=== PATIENT | male | born 1955 | race Caucasian/White ===

== ENCOUNTER 2023-09-18 06:11 | Observation (INO) | payer OTHER ==
[2023-09-15 09:44] LABS: BASOPHILS # (AUTO) 0.03 K/uL (0.00-0.20); BASOPHILS % (AUTO) 0.4 % (0.0-5.0); EOSINOPHILS # (AUTO) 0.11 K/uL (0.00-0.70); EOSINOPHILS % (AUTO) 1.6 % (0.0-8.0); HEMATOCRIT 42.4 % (42-54); IMMATURE GRANULOCYTE ABSOLUTE 0.02 K/uL (0-1); LYMPHOCYTES # (AUTO) 1.7 K/uL (1.0-4.8); LYMPHOCYTES % (AUTO) 25.3 % (21.0-51.0); MEAN CORPUSCULAR HEMOGLOBIN 28.9 pg (27.0-33.0); MEAN CORPUSCULAR HGB CONC 33.7 g/dL (32.0-36.0); MEAN CORPUSCULAR VOLUME 85.8 fL (79-99); MONOCYTES # (AUTO) 0.5 K/uL (0.1-1.0); MONOCYTES % (AUTO) 6.7 % (3.0-13.0); NEUTROPHILS # (AUTO) 4.5 K/uL (1.8-7.7); NEUTROPHILS % (AUTO) 65.7 % (40.0-77.0); PLATELET COUNT (AUTO) 247 K/uL (130-400); RED BLOOD CELL COUNT(AUTO) 4.94 MIL/uL (4.50-6.20); WHITE BLOOD COUNT (AUTO) 6.8 K/uL (4.8-10.8)
[2023-09-15 09:53] LABS: ALBUMIN 3.5 g/dL (3.5-5.0); CREATININE 0.8 mg/dL (0.5-1.3); POTASSIUM 3.9 mmol/L (3.5-5.1)
[2023-09-15 09:54] LABS: INR 1.02 (0.85-1.15)
[2023-09-15 09:56] LABS: PARTIAL THROMBOPLASTIN TIME 27.8 SEC (26.3-35.5)
[2023-09-15 10:21] VITALS: BP 144/83; PULSE 79; RESP 18
[2023-09-18] VITALS (29 sets, daily range): BP systolic 119–163; BP diastolic 52–86; PULSE 40–74; RESP 15–20
[~2023-09-18] VITALS: Ht 193 cm; Wt 143.3 kg
[~2023-09-18 06:11] MED LIST: ATOR20TA65 PO; HYDR25TA PO; LOSA25TA41 PO
[2023-09-18] MEDS: CEFAZOLIN SODIUM 2 GM VIAL ONE (06:56)
[2023-09-18] MEDS: CEFAZOLIN SODIUM 1 GM VIAL ONE (06:56)
[2023-09-18] MEDS: LACTATED RINGERS 1000ML 1,000 ML IV ONE (06:57)
[2023-09-18] MEDS ORDERED: TRANEXAMIC ACID 1000MG/10ML ONE (07:41)
[2023-09-18] MEDS ORDERED: PROPOFOL 10 MG/ML 20ML VIAL IV ONE (07:57)
[2023-09-18] MEDS ORDERED: MIDAZOLAM HCL 1 MG/ML 2ML VIAL ONE (07:57)
[2023-09-18] MEDS ORDERED: LIDOCAINE PF 100MG/5ML (2%) SYRINGE 5ML ONE (07:57)
[2023-09-18] MEDS ORDERED: ROCURONIUM BROMIDE 10MG/1ML 5ML VL ONE ×2 (07:57→09:11)
[2023-09-18] MEDS ORDERED: FENTANYL CITRATE PF 50 MCG/1 ML 2ML VIAL ONE ×2 (07:58→09:16)
[2023-09-18] MEDS ORDERED: ROPIVACAINE 0.5% 5MG/ML 30ML ONE (08:01)
[2023-09-18] MEDS ORDERED: DEXAMETHASONE SOD PHOSPHATE 10MG/ML 1ML VIAL ONE ×2 (08:05→09:11)
[2023-09-18] MEDS: CEFAZOLIN SODIUM 3 GM VIAL IVPB ONE (09:00)
[2023-09-18] MEDS ORDERED: ONDANSETRON 4MG INJ ONE (09:11)
[2023-09-18] MEDS ORDERED: KETOROLAC 30MG VIAL (30MG/ML) ONE (09:15)
[2023-09-18] MEDS ORDERED: GLYCOPYRROLATE 0.2 MG/ML 5 ML VIAL ONE (09:23)
[2023-09-18] MEDS ORDERED: NEOSTIGMINE METHYLSULFATE 1MG/ML IV ONE (09:23)
[2023-09-18] MEDS: TRANEXAMIC ACID 1000MG/10ML IV ONE (10:39)
[2023-09-18] MEDS: 0.9%NACL 1000ML 1,000 ML IV SCH (11:30)
[2023-09-18] MEDS ORDERED: ONDANSETRON 4MG INJ IVP PRN (11:30)
[2023-09-18] MEDS ORDERED: CALCIUM CARB 500MG PO PRN (11:30)
[2023-09-18] MEDS ORDERED: CYCLOBENZAPRINE HCL 10 MG TABLET PO PRN (11:30)
[2023-09-18] MEDS ORDERED: FERROUS FUMARATE 324 MG TABLET PO PRN (11:30)
[2023-09-18] MEDS: KETOROLAC 15MG/ML VIAL (15MG/ML) IV SCH (11:30)
[2023-09-18] MEDS ORDERED: DiphenhydrAMINE HCL 50 MG/ML VIAL IVP PRN (11:30)
[2023-09-18] MEDS: MEPERIDINE-PF 25 MG/ML SYG ONE (12:25)
[2023-09-18] MEDS: KETOROLAC 15MG/ML VIAL (15MG/ML) ONE (12:38)
[2023-09-18] MEDS: GABAPENTIN 100 MG CAPSULE PO SCH (14:00)
[2023-09-18] MEDS: HYDROCODONE/ACETAMINOPHEN 5/325 MG TAB PO PRN (15:05)
[2023-09-18] MEDS: CEFAZOLIN SODIUM 2 GM VIAL IVPB SCH (16:42)
[2023-09-18] MEDS: ATORVASTATIN 20 MG TABLET PO SCH (22:16)
[2023-09-18] MEDS: DOCUSATE SODIUM 100 MG CAP PO SCH (22:16)
[2023-09-19] VITALS (8 sets, daily range): BP systolic 112–136; BP diastolic 50–66; PULSE 59–92; RESP 18–20; O2SAT 96
[2023-09-19 05:00] LABS: HEMATOCRIT 36.7 % (42-54); MEAN CORPUSCULAR HEMOGLOBIN 29.6 pg (27.0-33.0); MEAN CORPUSCULAR HGB CONC 33.5 g/dL (32.0-36.0); MEAN CORPUSCULAR VOLUME 88.4 fL (79-99); RED BLOOD CELL COUNT(AUTO) 4.15 MIL/uL (4.50-6.20); RED CELL DISTRIBUTION WIDTH 12.8 % (11.0-15.5); WHITE BLOOD COUNT (AUTO) 14.9 K/uL (4.8-10.8)
[2023-09-19 05:19] LABS: CREATININE 0.9 mg/dL (0.5-1.3); POTASSIUM 4.2 mmol/L (3.5-5.1)
[2023-09-19] MEDS: LOSARTAN 25 MG TABLET PO SCH (08:45)
[2023-09-19] MEDS: POLYETHYLENE GLYCOL 3350 17 GM POWD.PACK PO SCH (08:45)
[2023-09-19] MEDS: HYDROCHLOROTHIAZIDE 25 MG TABLET PO SCH (08:46)
[2023-09-19] MEDS: HYDROCODONE/ACETAMINOPHEN 5/325 MG TAB PO PRN (08:54)
[2023-09-19] MEDS: KETOROLAC 15MG/ML VIAL (15MG/ML) IV PRN (21:01)
[2023-09-20 04:12] VITALS: BP 127/64; PULSE 58; RESP 18
[2023-09-20 07:44] VITALS: O2SAT 96
[2023-09-20 09:21] VITALS: BP 114/49; PULSE 47; RESP 18
[2023-09-20 11:22] VITALS: BP 132/53; PULSE 51; RESP 18
[2023-09-20 16:21] VITALS: BP 126/53; PULSE 51; RESP 18
[2023-09-20] MEDS: ASPIRIN 325MG TAB PO SCH (18:05)
[2023-09-20 20:00] VITALS: BP 142/52; PULSE 53; RESP 22
[2023-09-21] VITALS: BP 148/67; PULSE 55; RESP 20
[2023-09-21] MEDS: HYDROXYZINE 10 MG TABLET PO SCH (00:09)
[2023-09-21 04:00] VITALS: BP 120/75; PULSE 74; RESP 20
[2023-09-21 08:00] VITALS: BP 127/60; PULSE 100; RESP 20; O2SAT 97
[2023-09-21] MEDS ORDERED: BISACODYL 10 MG SUPP.RECT RC PRN (11:30)
[2023-09-21 11:34] VITALS: BP 133/67; PULSE 61; RESP 18
[2023-09-21 15:49] VITALS: BP 156/75; PULSE 50; RESP 18
[2023-09-21 15:51] LABS: HEMATOCRIT 38.4 % (42-54); MEAN CORPUSCULAR HEMOGLOBIN 29.6 pg (27.0-33.0); MEAN CORPUSCULAR HGB CONC 33.3 g/dL (32.0-36.0); MEAN CORPUSCULAR VOLUME 88.9 fL (79-99); RED BLOOD CELL COUNT(AUTO) 4.32 MIL/uL (4.50-6.20); RED CELL DISTRIBUTION WIDTH 13.1 % (11.0-15.5); WHITE BLOOD COUNT (AUTO) 14.1 K/uL (4.8-10.8)
[2023-09-21 16:04] LABS: ALBUMIN 2.7 g/dL (3.5-5.0); BILIRUBIN,TOTAL 1.8 mg/dL (0.2-1.0); CREATININE 0.9 mg/dL (0.5-1.3); POTASSIUM 3.2 mmol/L (3.5-5.1); TOTAL PROTEIN, SERUM 6.7 g/dL (6.0-8.3)
[2023-09-21 20:00] VITALS: BP 116/69; PULSE 107; RESP 20; O2SAT 96
[2023-09-22] VITALS: BP 135/66; PULSE 52; RESP 20
[2023-09-22 04:00] VITALS: BP 127/74; PULSE 76; RESP 20
[2023-09-22 08:00] VITALS: BP 126/54; PULSE 94; RESP 17
[2023-09-22 08:15] VITALS: O2SAT 96
[2023-09-22 12:06] VITALS: BP 122/77; PULSE 93; RESP 18
[2023-09-22] MEDS ORDERED: HYDR-4060 PO (13:00)
[2023-09-22] MEDS ORDERED: ASPI-1026 PO (13:00)
[2023-09-22] MEDS ORDERED: DOCU-116 PO (13:00)
[2023-09-22] MEDS ORDERED: CYCL-309 PO (13:00)
[2023-09-22 16:00] VITALS: BP 126/50; PULSE 99; RESP 18
== END 2023-09-22 18:05 | disposition home or self-care (01) ==
LOC: DAH 06:11 → DAHIP 06:12 → 4DH 13:10
PROVIDERS: ADMIT Student in an Organized Health Care Education/Training Program; ATTEND Student in an Organized Health Care Education/Training Program
DX: M16.12 Unilateral primary osteoarthritis, left hip (principal); D62 Acute posthemorrhagic anemia; R33.9 Retention of urine, unspecified; I10 Essential (primary) hypertension; E78.5 Hyperlipidemia, unspecified; Z79.899 Other long term (current) drug therapy
CPT/HCPCS: 82040; 80048 ×2; 85025; 85610; 85730; 84134; 86140; 36415 ×3; 87641; 64450; 96365; 96375; 27130; 73502; 73503; 97161; 97116 ×9; 96376 ×2; 96366; 85027 ×2; 97530 ×6; 80053; G0378 ×96; A4600; A4663; J7120 ×2; C1776; J0690 ×5; J3010 ×2; J3490 ×6; J1100 ×2; J2001; J2250; J2704; J2405; J1885 ×5; J2710; J2175; J2795; A4649 ×2; G0168; A6255; A4215; A4223; A4222; A4221; J7030

== ENCOUNTER 2023-09-26 21:29 | Emergency (ER) | payer OTHER ==
[~2023-09-26 21:29] MED LIST changes: +ASPI-1026 PO; +CYCL-309 PO; +DOCU-116 PO; +HYDR-4060 PO
[2023-09-26] MEDS: ONDANSETRON 4MG INJ IVP ONE (22:50)
[2023-09-26] MEDS: MORPHINE 4 MG SYG IVP ONE (22:51)
[2023-09-26] MEDS: LIDOCAINE HCL 2% JELLY 5 ML TP SCH (22:51)
[2023-09-26 23:28] LABS: APPEARANCE,URINE CLEAR (CLEAR); BILIRUBIN,URINE NEGATIVE (NEGATIVE); COLOR,URINE LIGHT-YELLOW (YELLOW); GLUCOSE, URINE (UA) NEGATIVE (NEGATIVE); KETONES,URINE NEGATIVE (NEGATIVE); LEUKOCYTE ESTERASE ,URINE NEGATIVE Leu/uL (NEGATIVE); NITRATE,URINE NEGATIVE (NEGATIVE); OCCULT BLOOD,URINE MODERATE (NEGATIVE); PROTEIN,URINE 20 mg/dL (NEGATIVE); UROBILINOGEN,URINE 0.2 mg/dL (0.2-1.0)
[2023-09-26 23:31] LABS: ADD UA MICROSCOPIC YES
[2023-09-26 23:33] LABS: BACTERIA,URINE RARE /HPF (None Seen); MUCUS,URINE RARE LPF (None Seen); RBC,URINE 26-50 /HPF (0-1)
[2023-09-26 23:38] LABS: BASOPHILS # (AUTO) 0.03 K/uL (0.00-0.20); BASOPHILS % (AUTO) 0.3 % (0.0-5.0); EOSINOPHILS # (AUTO) 0.14 K/uL (0.00-0.70); EOSINOPHILS % (AUTO) 1.5 % (0.0-8.0); HEMATOCRIT 33.4 % (42-54); IMMATURE GRANULOCYTE ABSOLUTE 0.05 K/uL (0-1); LYMPHOCYTES # (AUTO) 1.6 K/uL (1.0-4.8); LYMPHOCYTES % (AUTO) 16.6 % (21.0-51.0); MEAN CORPUSCULAR HEMOGLOBIN 29.3 pg (27.0-33.0); MEAN CORPUSCULAR HGB CONC 34.1 g/dL (32.0-36.0); MEAN CORPUSCULAR VOLUME 85.9 fL (79-99); MONOCYTES # (AUTO) 0.7 K/uL (0.1-1.0); MONOCYTES % (AUTO) 7.5 % (3.0-13.0); NEUTROPHILS # (AUTO) 6.9 K/uL (1.8-7.7); NEUTROPHILS % (AUTO) 73.6 % (40.0-77.0); PLATELET COUNT (AUTO) 311 K/uL (130-400); RED BLOOD CELL COUNT(AUTO) 3.89 MIL/uL (4.50-6.20); RED CELL DISTRIBUTION WIDTH 12.9 % (11.0-15.5); WHITE BLOOD COUNT (AUTO) 9.3 K/uL (4.8-10.8)
[2023-09-26 23:49] LABS: CREATININE 0.9 mg/dL (0.5-1.3); POTASSIUM 3.7 mmol/L (3.5-5.1)
[2023-09-26 23:54] LABS: ALBUMIN 2.5 g/dL (3.5-5.0); BILIRUBIN,TOTAL 1.2 mg/dL (0.2-1.0); TOTAL PROTEIN, SERUM 6.2 g/dL (6.0-8.3)
[2023-09-26 23:56] LABS: INR 1.05 (0.85-1.15); PROTHROMBIN TIME 11.3 SEC (9.6-11.6)
[2023-09-26 23:58] LABS: PARTIAL THROMBOPLASTIN TIME 26.6 SEC (26.3-35.5)
[2023-09-27] MEDS: CEFTRIAXONE 1G VIAL IVPB ONE (00:52)
[2023-09-27] MEDS: 0.9% NACL 500ML IV.SOLN 500 ML IV ONE (00:52)
[2023-09-27] MEDS ORDERED: CEPH500T PO (01:33)
[2023-09-27] MEDS: MORPHINE 4 MG SYG IM ONE (01:51)
[2023-09-27 02:36] VITALS: BP 124/73; PULSE 87; RESP 16; O2SAT 99
== END 2023-09-27 02:39 | disposition home or self-care (01) ==
LOC: EDH 21:29
DX: R33.9 Retention of urine, unspecified (principal); R31.9 Hematuria, unspecified; Z96.0 Presence of urogenital implants; E78.00 Pure hypercholesterolemia, unspecified; I10 Essential (primary) hypertension; Z79.82 Long term (current) use of aspirin
CPT/HCPCS: 99284; 96375; 80053; 85025; 85610; 85730; 81001; 36415; 96365; 51701; 96372; J2405; J2270 ×2; J7040; J0696

== ENCOUNTER → 2023-12-05 | Outpatient (CLI) | payer OTHER ==
[~2023-12-05] MED LIST changes: +CEPH500T PO
== END | disposition home or self-care (01) ==
LOC: RAH 11:07
PROVIDERS: ATTEND Internal Medicine
DX: M54.6 Pain in thoracic spine (principal)
CPT/HCPCS: 72072

== ENCOUNTER 2024-07-24 08:03 | Observation (INO) | payer OTHER ==
[2024-07-23 09:58] LABS: BASOPHILS # (AUTO) 0.03 K/uL (0.00-0.20); BASOPHILS % (AUTO) 0.4 % (0.0-5.0); EOSINOPHILS # (AUTO) 0.11 K/uL (0.00-0.70); EOSINOPHILS % (AUTO) 1.6 % (0.0-8.0); HEMATOCRIT 42.2 % (42-54); IMMATURE GRANULOCYTE ABSOLUTE 0.02 K/uL (0-1); LYMPHOCYTES # (AUTO) 1.6 K/uL (1.0-4.8); LYMPHOCYTES % (AUTO) 23.6 % (21.0-51.0); MEAN CORPUSCULAR HEMOGLOBIN 29.1 pg (27.0-33.0); MEAN CORPUSCULAR HGB CONC 32.9 g/dL (32.0-36.0); MEAN CORPUSCULAR VOLUME 88.5 fL (79-99); MONOCYTES # (AUTO) 0.5 K/uL (0.1-1.0); NEUTROPHILS # (AUTO) 4.6 K/uL (1.8-7.7); NEUTROPHILS % (AUTO) 67.1 % (40.0-77.0); PLATELET COUNT (AUTO) 232 K/uL (130-400); RED BLOOD CELL COUNT(AUTO) 4.77 MIL/uL (4.50-6.20); RED CELL DISTRIBUTION WIDTH 13.4 % (11.0-15.5); WHITE BLOOD COUNT (AUTO) 6.9 K/uL (4.8-10.8)
[2024-07-23 10:07] LABS: ALBUMIN 3.5 g/dL (3.5-5.0); CREATININE 0.9 mg/dL (0.5-1.3); POTASSIUM 4.2 mmol/L (3.5-5.1)
[2024-07-23 10:09] LABS: INR 0.99 (0.85-1.15); PROTHROMBIN TIME 10.5 SEC (9.6-11.6)
[2024-07-23 10:10] LABS: PARTIAL THROMBOPLASTIN TIME 27.4 SEC (26.3-35.5)
[2024-07-23 10:33] VITALS: BP 110/87; PULSE 88; RESP 18; TEMP 98.1
--- NOTE | 2024-07-23 10:36 | NUR ---
PERRYOP JOSE RUSSELL INSTRUCTED PT ON INCENTIVE SPIROMETRY.
[~2024-07-24] VITALS: Ht 193 cm; Wt 155.8 kg
[2024-07-24] VITALS (28 sets, daily range): BP systolic 104–143; BP diastolic 55–94; PULSE 43–74; RESP 13–20; TEMP 97.6–98; O2SAT 96–98
[~2024-07-24 08:03] MED LIST changes: -ASPI-1026 PO; +ASPI-1443 PO; -CEPH500T PO; -CYCL-309 PO; -DOCU-116 PO; -HYDR-4060 PO; +TAMS-55 PO
[2024-07-24] MEDS: LACTATED RINGERS 1000ML 1,000 ML IV ONE (08:49)
[2024-07-24] MEDS: ceFAZolin SODIUM 2 GM VIAL ONE (08:49)
[2024-07-24] MEDS: ceFAZolin SODIUM 1 GM VIAL ONE (08:49)
[2024-07-24] MEDS ORDERED: LIDOCAINE PF 100MG/5ML (2%) SYRINGE 5ML ONE (10:33)
[2024-07-24] MEDS ORDERED: ROPivacaine 0.5% 5MG/ML 30ML ONE (10:33)
[2024-07-24] MEDS ORDERED: proPOFol 10 MG/ML 20ML VIAL IV ONE ×2 (10:33→13:52)
[2024-07-24] MEDS ORDERED: MIDAZOLAM HCL 1 MG/ML 2ML VIAL ONE (10:33)
[2024-07-24] MEDS ORDERED: rocuRONium bROMide 10MG/1ML 5ML VL ONE ×3 (10:33→12:57)
[2024-07-24] MEDS ORDERED: FENTanyl CITRate PF 50 MCG/1 ML 2ML VIAL ONE ×2 (10:34→11:55)
[2024-07-24] MEDS: TRANEXAMIC ACID 1000MG/10ML ONE (11:37)
[2024-07-24] MEDS ORDERED: dexaMETHasone SOD PHOSPHATE 10MG/ML 1ML VIAL ONE (11:39)
[2024-07-24] MEDS ORDERED: ondanSETRON 4MG INJ ONE (11:39)
[2024-07-24] MEDS ORDERED: ePHEDrine SULFate 50 MG/ML AMPULE ONE (12:07)
[2024-07-24] MEDS ORDERED: GLYCOPYRROLATE 0.2 MG/ML 5 ML VIAL ONE (12:08)
[2024-07-24] MEDS: ROPivacaine 0.5% 5MG/ML 30ML ONE (12:56)
[2024-07-24] MEDS: ketOROlac 30MG VIAL (30MG/ML) ONE (12:56)
[2024-07-24] MEDS: hydroMORPHone 1 MG INJ ONE (13:06)
[2024-07-24] MEDS: acetaMINOPHEN 100 ML ONE (13:07)
[2024-07-24] MEDS: TRANEXAMIC ACID 1000MG/10ML IV ONE ×2 (13:21)
[2024-07-24] MEDS ORDERED: NEOSTIGMINE METHYLSULFATE 1MG/ML IV ONE (13:29)
--- NOTE | 2024-07-24 13:50 | DS ---
Discharge Summary Hospital Course Summary: The patient was admitted to the hospital postoperatively on 07/24/2024 after undergoing right total knee arthroplasty. They did well with routine postoperative pain control. They worked well with physical therapy. They developed some acute blood loss anemia but remained asymptomatic. The hospital course was otherwise uncomplicated. They were subsequently able to be discharged on postoperative day 1 once discharge arrangements were made with home health physical therapy. Materials And Processes Manager(s): None Procedure(s): Right total knee arthroplasty, 07/24/2024 Assessment/Plan: ASSESSMENT: Status post right total knee arthroplasty Acute blood loss anemia PLAN: See discharge instructions Discharge Instructions: Begin working with home health physical therapy. Dressing may be removed 07/26/2024 and left open to air. Showers ok allowing soap and water to run over the wound. Pat dry. Do not submerge wound in tub/pool. Do not apply ointments. Do not apply Betadine. Do not apply peroxide. Ice packs to decrease pain/swelling. Prescriptions have been sent to the pharmacy: *Banning 5/325mg 1-2 tab every 6 hours as needed for severe pain. (please call for refills) Cyclobenzaprine 5mg 1 tab every 8 hours as needed for muscle spasm pain. Colace 100mg 1 tab orally twice a day as needed for constipation. Aspirin 325mg twice a day for 30 days to prevent blood clots. Call for a follow-up appointment in 2-3 weeks at [facility]. Home Medications: Active Scripts Docusate Sodium (Colace) 100 Mg Capsule, 1 CAP PO BID for 30 Days, #60 CAP 0 Refills Prov:SIMON IRIZARRY MD 07/25/24 Hydrocodone/Acetaminophen (Hydrocodon-Acetaminophen 5-325) 5 Mg-325 Mg Tablet, 1-2 TAB PO Q6HPRN PRN for SEVERE PAIN (7-10), #56 TAB 0 Refills Prov:SIMON IRIZARRY MD 07/25/24 Cyclobenzaprine HCl (Cyclobenzaprine HCl) 10 Mg Tablet, 5 MG PO Q8H PRN for MUSCLE SPASMS, #45 TAB 0 Refills Prov:SIMON IRIZARRY MD 07/25/24 Aspirin (Aspirin EC) 325 Mg Tablet.dr, 325 MG PO DAILY, #30 TAB 0 Refills Prov:SIMON IRIZARRY MD 07/25/24 Reported Medications Tamsulosin HCl (Flomax) 0.4 Mg Cap.er.24h, 0.4 MG PO HS, CAPSULE. 07/23/24 Losartan Potassium (Losartan Potassium) 25 Mg Tablet, 25 MG PO AM, TAB 09/15/23 Hydrochlorothiazide (Hydrochlorothiazide) 25 Mg Tablet, 25 MG PO AM, TAB 09/15/23 Atorvastatin Calcium (Atorvastatin Calcium) 20 Mg Tablet, 20 MG PO HS, TAB 09/15/23 Discontinued Reported Medications Aspirin (Aspirin EC) 81 Mg Tablet.dr, 81 MG PO AM, TAB 07/23/24 Discontinued Scripts Cephalexin (Cephalexin) 500 Mg Tablet, 500 MG PO BID for 10 Days, #20 TAB 0 Refills Prov:JUAN DIEGO COHEN NP 09/27/23 Docusate Sodium (Colace) 100 Mg Capsule, 100 MG PO BID for 30 Days, #60 CAP 0 Refills Prov:SIMON IRIZARRY MD 09/22/23 Hydrocodone/Acetaminophen (Hydrocodon-Acetaminophen 5-325) 5 Mg-325 Mg Tablet, 1-2 TAB PO Q6HPRN PRN for MODERATE PAIN (4-6), #56 TAB 0 Refills Prov:SIMON IRIZARRY MD 09/22/23 Cyclobenzaprine HCl (Cyclobenzaprine HCl) 10 Mg Tablet, 5 MG PO Q8H PRN for MUSCLE SPASMS, #45 TAB 0 Refills Prov:SIMON IRIZARRY MD 09/22/23 Aspirin (Aspirin) 325 Mg Tablet, 325 MG PO DAILY, #30 TAB 0 Refills Prov:SIMON IRIZARRY MD 09/22/23 SIMON IRIZARRY MD July 24, 2024 13:50
[2024-07-24] MEDS ORDERED: CYCLOBENZAPRINE HCL 10 MG TABLET PO PRN (14:00)
[2024-07-24] MEDS ORDERED: CALCIUM CARB 500MG PO PRN (14:00)
[2024-07-24] MEDS ORDERED: PoTASSium chl 10% ELIXIR 20MEQ 20 MEQ/15 ML UDCUP PO PRN (14:00)
[2024-07-24] MEDS ORDERED: FERROUS FUMARATE 324 MG TABLET PO PRN (14:00)
[2024-07-24] MEDS ORDERED: ondanSETRON 4MG INJ IVP PRN (14:00)
[2024-07-24] MEDS ORDERED: traMADol HCL 50 MG TABLET PO PRN (14:00)
[2024-07-24] MEDS ORDERED: PoTASSium chloRIDE 20MEQ ER 20 MEQ ERTAB PO PRN (14:00)
[2024-07-24] MEDS ORDERED: DiphenhydrAMINE HCL 50 MG/ML VIAL IVP PRN (14:00)
[2024-07-24] MEDS ORDERED: PoTASSium chloRIDE 20MEQ/100ML 100 ML IV PRN (14:00)
[2024-07-24] MEDS ORDERED: HYDROcodone/APAP 5/325 1 TAB TABLET PO PRN (14:00)
--- NOTE | 2024-07-24 14:02 | OP ---
Operative Note: DATE OF PROCEDURE: 07/24/24 PREOPERATIVE DIAGNOSIS: Right knee osteoarthritis. POSTOPERATIVE DIAGNOSIS: Right knee osteoarthritis. PROCEDURE PERFORMED: Right knee total knee arthroplasty. SURGEON: Vandana Ferrer MD MANUFACTURING QUALITY TECHNICIAN: Minh Navarrete and Pedro Reid. ANESTHESIA: General with adductor canal block. ANESTHESIA: FRANK Obregon. ESTIMATED BLOOD LOSS: 50cc. COMPLICATIONS: None. DRAINS: None. SPECIMENS REMOVED: resected bone. Not sent to pathology. IMPLANTS: Obregon and Nephew Journey II BCS size 10 Oxinium femur, size 8 tibial base plate, 35 mm patella, 9 mm polyethylene STATEMENT OF MEDICAL NECESSITY: The patient is a 68-year-old male who suffers from right knee osteoarthritis failing conservative management. After discussion of the risks, benefits, and alternatives with the patient, they voluntarily agreed to undergo the aforementioned procedure. DESCRIPTION OF PROCEDURE: Patient was properly identified in the preoperative holding area. Surgical site marking was verified and surgery consent reviewed. The patient was then taken to the operating room and placed in supine position on the OR table. After induction of general anesthesia, preoperative antibiotics were given, all bony prominences were well-padded, and a well padded tourniquet was applied but not inflated at this time. The right lower extremity was then prepped and draped in usual sterile fashion. Surgical time out was done verifying correct surgery, side, site, and location to be performed. We then began the procedure by exsanguinating the limb using an Esmarch and inflating the tourniquet to 350 mmHg. At this point, we made an anterior midline incision using a 10 blade, coming down sharply the level of the fascia. Skin flaps were elevated medially and laterally. We then obtained a clean 10 blade and performed a standard medial parapatellar arthrotomy. We excised the infrapatellar fat pad. We performed our soft tissue releases off of the tibia. We transected the ACL and removed the anterior portion of the medial & lateral meniscus. We then brought the knee into hyperflexion with the patella everted. We used our entry reamer to enter the femoral canal. We then placed our intramedullary cutting guide for our distal femoral cutting block. We then performed our distal femoral osteotomy ensuring appropriate rotation and removed the bony wafer. We then removed these pins and block and then used jig 2 to size the distal femur with the after mentioned size found. We then placed our 5-in-1 cutting block in 4 degrees of external rotation and took our 5 cuts ensuring to protect the patellar tendon and the collateral ligaments. We then removed the cutting block and our bony fragments using a curved osteotome. We then placed our PCL retractor subluxating the tibia anteriorly. Using an extra medullary tibial cutting guide, we hung the block for our proximal tibial cut taking 2 mm off the more diseased portion. Prior to pinning this block in place, we ensured appropriate varus/valgus alignment and posterior slope similar to the pamunkey slope of the patient's knee. We then performed our proximal ti bial osteotomy and removed the bony wafer using Bovie electrocautery to release any remaining soft tissue attachments. We then used our tibial sizing paddle and checked once more for varus & valgus alignment and found this to be appropriate. At this point, we pinned our tibial paddle in place. We then removed the PCL retractor and subluxated the tibia posteriorly while we placed our femoral trial component. We then finished preparing the notch with the reamer and box chisel. The notch portion of the trial femoral component was then placed. A posterior stabilized polyethylene, size 9 trial was placed. This was found to be tight in extension but not in flexion so we elected to revise the distal femur and chamfer cuts. We then placed the trials once more with the 9 mm polyethylene trial. The knee was then taken through range of motion and found to have stable full range of motion. We then placed a bump under the ankle and everted the patella to perform our freehand cut of the undersurface the patella. We then sized our patella and reamed to the lug holes for this. We placed our trial patellar component and begin to take the knee through range of motion. The patella had lateral tracking so we performed a lateral release with the improvement in the tracking. At this point we began removing our trial components and punched the tibial keel prior to removing our tibial trial component. Final components were opened and cement was mixed on the back table while we injected local cocktail in the posterior capsule. We then thoroughly irrigated out the bone and dried the bony surfaces. We cemented our tibial component in place ensuring to remove excess cement and placed our trial polyethylene. We then cemented our femoral component in place once again taking time to ensure excess cement was removed leg was brought into full extension to help squeeze the excess cement from around the femoral component. We then brought the knee back in a flexion to remove this portion of the cement at this point we placed t he ankle in a bump thoroughly irrigated off the patellar component and cemented our patellar component in standard fashion again removing excess cement. While we waited for the cement to cure, we thoroughly irrigated out the wound with normal saline. Once our cement had cured, we took the knee through a range of motion and found full and stable range of motion. We then elected to use the size 9 polyethylene and removed our trial polyethylene. We impacted our final polyethylene component in place in standard fashion and took the knee through a range of motion check once more. This was satisfactory so we began to repair the arthrotomy using #1 Vicryl in interrupted [id number] fashion. Subcutaneous tissue was repaired using 2-0 Vicryl. Running subcuticular 3-0 Monocryl stitch with Dermabond placed over this for the skin. We then applied a foam barrier dressing and a pressure dressing consisting of 4 x 4's fluffs and an Jose Cruz wrap. The tourniquet was then deflated. Patient was awakened from anesthesia, and they were taken to the recovery room in stable condition. VANDANA FERRER MD July 24, 2024 14:02
--- NOTE | 2024-07-24 14:58 | HMCIMG ---
Exam Type: KNEE/PATELLA 1-2VWS RT Clinical Information: S/P RT TKA SURGERY Comparison: None Findings: Routine views of the knee are without evidence of fracture, dislocation, arthritic, or inflammatory change. There is status post knee replacement with adequate visualization and alignment of bony and hardware elements. No complications are seen. There are vascular calcifications. The joint space is well maintained and there is no effusion. IMPRESSION: Status post knee replacement.
[2024-07-24] MEDS: ketOROlac 15MG/ML VIAL (15MG/ML) IV SCH (15:05)
[2024-07-24] MEDS: ketOROlac 15MG/ML VIAL (15MG/ML) ONE (15:05)
--- NOTE | 2024-07-24 16:00 | NUR ---
ORTHO COORDINATOR: TEACHING REGARDING DVT AND PNEUMONIA PREVENTION, PAIN EXPECTATIONS AND PAIN MANAGEMENT. PATIENT IN BED, AT BESIDE. B SCD'S IN PLACE AND FUNCTIONING. NO INCENTIVE SPIROMETER AT BEDSIDE. PATIENT ABLE TO VERBALIZE FREQUENCY OF USE FOR INCENTIVE SPIROMETER. PAIN CONTROLLED. PATIENT HAD A LEFT HIP REPLACEMENT WITH US PREVIOUSLY. PAIN EXPECTATIONS REALISTIC. REVIEWED NUMERIC PAIN SCORE, REMINDED PATIENT PAIN MEDICATIONS MUST BE REQUESTED. ENCOURAGED PATIENT TO SET AN ALARM FOR EVERY FOUR HOURS AND TO PERFORM A SELF PAIN CHECK. PATIENT AND VERBALIZED UNDERSTANDING. PATIENT RETURN DEMONSTRATED FOOT FLEXION/EXTENSION EXERCISES. EXPECTATIONS SET FOR PATIENT TO SHOWER IN THE MORNING. PATIENT VERBALIZED UNDERSTANDING. PATIENT REPORTS VOIDED SINCE SURGERY. 1610 REPORT TO PRIMARY NURSE REGARDING NEED FOR INCENTIVE SPIROMETER. PRIMARY NURSE ACKNOWLEDGED COMMUNICATION.
[2024-07-24] MEDS: 0.9%NACL 1000ML 1,000 ML IV SCH (17:39)
[2024-07-24] MEDS: ceFAZolin SODIUM 2 GM VIAL IVP SCH (21:11)
[2024-07-24] MEDS: doCUSate SODIUM 100 MG CAP PO SCH (21:12)
[2024-07-24] MEDS: atorVAStatin 20 MG TABLET PO SCH (21:12)
[2024-07-24] MEDS: tamSULOsin HCL 0.4 MG CAP.ER.24H PO SCH (21:12)
[2024-07-25] VITALS: BP 125/56; PULSE 68; RESP 20; TEMP 97.9
[2024-07-25] MEDS: HYDROcodone/APAP 5/325 1 TAB TABLET PO PRN ×2 (03:16→09:41)
[2024-07-25 04:00] VITALS: BP 107/53; PULSE 91; RESP 20; TEMP 98.4
[2024-07-25 04:54] LABS: HEMATOCRIT 34.4 % (42-54); MEAN CORPUSCULAR HEMOGLOBIN 29.1 pg (27.0-33.0); MEAN CORPUSCULAR HGB CONC 32.8 g/dL (32.0-36.0); MEAN CORPUSCULAR VOLUME 88.7 fL (79-99); RED BLOOD CELL COUNT(AUTO) 3.88 MIL/uL (4.50-6.20); RED CELL DISTRIBUTION WIDTH 13.3 % (11.0-15.5); WHITE BLOOD COUNT (AUTO) 11.7 K/uL (4.8-10.8)
[2024-07-25 05:13] LABS: CREATININE 0.9 mg/dL (0.5-1.3); POTASSIUM 4.4 mmol/L (3.5-5.1)
[2024-07-25 06:39] VITALS: PULSE 60; RESP 19; O2SAT 97
[2024-07-25 08:00] VITALS: BP 102/53; PULSE 56; RESP 20; TEMP 98.8
--- NOTE | 2024-07-25 08:08 | PN ---
Ortho postop day one. This morning the patient is awake alert and out of bed seated on his chair alternating extension and flexion of his extremity on a footstool. The Jose Cruz bandage has already been removed. There is ice present to the anterior joint. The dressing is intact. Lower extremity edema as expected but negative Homans. Distal neurovascular exam intact. Vital signs have remained stable. He is afebrile. Voiding on his own. Laboratory results reviewed. Noted to have a drop in hemoglobin and hematocrit as expected after total knee arthroplasty. Patient is asymptomatic. We will continue to observe and address per protocol as necessary. Reinforced incentive spirometry. Patient ambulated yesterday with physical therapy only about 10 ft. Pending further physical therapy this morning. Operative findings discussed with the patient. The plan is home health/PT. Assessment: Status post right total knee arthroplasty. Asymptomatic acute postoperative blood loss anemia. Plan: Continue Dr. Ferrre's TKA protocol and discharge planning. Asymptomatic acute postoperative blood loss anemia addressed with the protocol as necessary. Vitals/Labs Vital Signs Date Time Temp Pulse Resp B/P (MAP) Pulse Ox O2 Delivery O2 Flow Rate FiO2 07/25/24 06:39 60 19 N/A Room Air 21 07/25/24 04:00 98.4 107/53 96 07/25/24 00:00 1.0 Laboratory Tests 07/25/24 04:18 Medications Current Medications Cefazolin Sodium 1 gm STK-MED ONCE .ROUTE Last administered on 07/24/24at 11:37; Start 07/24/24 at 07:25; Stop 07/24/24 at 07:25; Status DC Cefazolin Sodium 2 gm STK-MED ONCE .ROUTE Last administered on 07/24/24at 11:37; Start 07/24/24 at 07:25; Stop 07/24/24 at 07:25; Status DC Lactated Ringer's 1,000 ml @ As Directed STK-MED ONCE IV Last administered on 07/24/24at 08:49; Start 07/24/24 at 07:25; Stop 07/24/24 at 07:25; Status DC Lidocaine HCl 100 mg STK-MED ONCE .ROUTE; Start 07/24/24 at 10:33; Stop 07/24/24 at 10:33; Status DC Ropivacaine 150 mg STK-MED ONCE .ROUTE; Start 07/24/24 at 10:33; Stop 07/24/24 at 10:33; Status DC Propofol 200 mg STK-MED ONCE IV; Start 07/24/24 at 10:33; Stop 07/24/24 at 10:33; Status DC Midazolam HCl 2 mg STK-MED ONCE .ROUTE; Start 07/24/24 at 10:33; Stop 07/24/24 at 10:34; Status DC Rocuronium Camden 50 mg STK-MED ONCE .ROUTE; Start 07/24/24 at 10:33; Stop 07/24/24 at 10:34; Status DC Fentanyl Citrate 100 mcg STK-MED ONCE .ROUTE; Start 07/24/24 at 10:34; Stop 07/24/24 at 10:34; Status DC Tranexamic Acid 1,000 mg STK-MED ONCE .ROUTE Last administered on 07/24/24at 11:37; Start 07/24/24 at 10:35; Stop 07/24/24 at 10:35; Status DC Ketorolac Tromethamine 30 mg STK-MED ONCE .ROUTE Last administered on 07/24/24at 12:56; Start 07/24/24 at 10:35; Stop 07/24/24 at 10:35; Status DC Ropivacaine 150 mg STK-MED ONCE .ROUTE Last administered on 07/24/24at 12:56; Start 07/24/24 at 10:35; Stop 07/24/24 at 10:36; Status DC Ondansetron HCl 4 mg STK-MED ONCE .ROUTE; Start 07/24/24 at 11:39; Stop 07/24/24 at 11:40; Status DC Dexamethasone Sodium Phosphate 10 mg STK-MED ONCE .ROUTE; Start 07/24/24 at 11:39; Stop 07/24/24 at 11:40; Status DC Rocuronium Camden 50 mg STK-MED ONCE .ROUTE; Start 07/24/24 at 11:55; Stop 07/24/24 at 11:59; Status DC Fentanyl Citrate 100 mcg STK-MED ONCE .ROUTE; Start 07/24/24 at 11:55; Stop 07/24/24 at 12:00; Status DC Ephedrine Sulfate 50 mg STK-MED ONCE .ROUTE; Start 07/24/24 at 12:07; Stop 07/24/24 at 12:07; Status DC Glycopyrrolate 1 mg STK-MED ONCE .ROUTE; Start 07/24/24 at 12:08; Stop 07/24/24 at 12:09; Status DC Tranexamic Acid 1,000 mg STK-MED ONCE IV; Start 07/24/24 at 00:00; Stop 07/24/24 at 00:01; Status Cancel Rocuronium [place] 50 mg STK-MED ONCE .ROUTE; Start 07/24/24 at 12:57; Stop 07/24/24 at 12:57; Status DC Hydromorphone HCl 1 mg STK-MED ONCE .ROUTE; Start 07/24/24 at 13:06; Stop 07/24/24 at 13:07; Status DC Acetaminophen 100 ml @ As Directed STK-MED ONCE .ROUTE; Start 07/24/24 at 13:07; Stop 07/24/24 at 13:07; Status DC Neostigmine Methylsulfate 10 mg STK-MED ONCE IV; Start 07/24/24 at 13:29; Stop 07/24/24 at 13:30; Status DC Tranexamic Acid 1,000 mg STK-MED ONCE IV Last administered on 07/24/24at 13:21; Start 07/24/24 at 13:21; Stop 07/24/24 at 13:34; Status DC Sodium Chloride 1,000 ml @ 100 mls/hr Q10H IV Last administered on 07/24/24at 17:39; Start 07/24/24 at 14:00; Stop 07/25/24 at 13:59 Polyethylene Glycol 17 gm DAILY PO; Start 07/25/24 at 09:00; Stop 08/24/24 at 08:59 Bisacodyl 10 mg DAILY PRN RC; Start 07/27/24 at 14:00; Stop 08/26/24 at 13:59 Ketorolac Tromethamine 15 mg Q6H PRN IV; Start 07/25/24 at 14:00; Stop 07/30/24 at 13:59 Ferrous Fumarate 324 mg DAILY PRN PO; Start 07/24/24 at 14:00; Stop 08/23/24 at 13:59 Ondansetron HCl 4 mg Q6H PRN IVP; Start 07/24/24 at 14:00; Stop 08/23/24 at 13:59 Calcium Carbonate 500 mg Q12H PRN PO; Start 07/24/24 at 14:00; Stop 08/23/24 at 13:59 Diphenhydramine HCl 25 mg Q6H PRN IVP; Start 07/24/24 at 14:00; Stop 08/23/24 at 13:59 Cefazolin Sodium 2 gm Q8H IVP Last administered on 07/25/24at 03:09; Start 07/24/24 at 19:00; Stop 07/25/24 at 03:01; Status DC Cyclobenzaprine HCl 5 mg Q8H PRN PO; Start 07/24/24 at 14:00; Stop 08/23/24 at 13:59 Aspirin 325 mg DAILY PO; Start 07/25/24 at 09:00; Stop 08/24/24 at 08:59 Ketorolac Tromethamine 15 mg Q8H IV Last administered on 07/25/24at 05:59; Start 07/24/24 at 14:00; Stop 07/25/24 at 06:01; Status DC Docusate Sodium 100 mg BID PO Last administered on 07/24/24at 21:12; Start 07/24/24 at 21:00; Stop 08/23/24 at 20:59 Potassium Chloride 100 ml @ 100 mls/hr AD PRN IV; Start 07/24/24 at 14:00; Stop 08/23/24 at 13:59 Potassium Chloride 20 meq AD PRN PO; Start 07/24/24 at 14:00; Stop 08/23/24 at 13:59 Potassium Chloride 20 meq AD PRN PO; Start 07/24/24 at 14:00; Stop 08/23/24 at 13:59 Tramadol HCl 50 mg Q6H PRN PO; Start 07/24/24 at 14:00; Stop 07/29/24 at 13:59 Acetaminophen/ Hydrocodone Bitart Q4H PRN PO; Start 07/24/24 at 14:00; Stop 07/24/24 at 13:53; Status DC Atorvastatin Calcium 20 mg HS PO Last administered on 07/24/24at 21:12; Start 07/24/24 at 21:00; Stop 08/23/24 at 20:59 Hydrochlorothiazide 25 mg AM PO; Start 07/25/24 at 09:00; Stop 08/24/24 at 08:59 Losartan Potassium 25 mg AM PO; Start 07/25/24 at 09:00; Stop 08/24/24 at 08:59 Tamsulosin HCl 0.4 mg HS PO Last administered on 07/24/24at 21:12; Start 07/24/24 at 21:00; Stop 08/23/24 at 20:59 Propofol 200 mg STK-MED ONCE IV; Start 07/24/24 at 13:52; Stop 07/24/24 at 13:52; Status DC Acetaminophen/ Hydrocodone Bitart 1 tab Q4H PRN PO Last administered on 07/25/24at 03:16; Start 07/24/24 at 14:00; Stop 07/29/24 at 13:59 Acetaminophen/ Hydrocodone Bitart 2 tab Q4H PRN PO; Start 07/24/24 at 14:00; Stop 07/29/24 at 13:59 Ketorolac Tromethamine 15 mg STK-MED ONCE .ROUTE; Start 07/24/24 at 14:47; Stop 07/24/24 at 14:48; Status DC LORI [employer]IO [employer] July 25, 2024 08:08
[2024-07-25] MEDS: ASPIRIN 325MG EC TAB PO SCH (08:21)
[2024-07-25] MEDS: hydroCHLOROthiazide 25 MG TABLET PO SCH (08:21)
[2024-07-25] MEDS: polyETHYLene GLYCol 3350 17 GM POWD.PACK PO SCH (08:22)
[2024-07-25] MEDS: LoSARTan 25 MG TABLET PO SCH (08:24)
[2024-07-25 11:32] VITALS: BP 114/50; PULSE 51; RESP 20; TEMP 98.2
--- NOTE | 2024-07-25 13:03 | NUR ---
[facility] CM MET WITH PT THIS MORNING INITIAL ASSESSMENT DONE. PATIENT IS INDEPENDENT PRIOR TO SURGERY, LIVES AT HOME WITH HIS . PATIENT HAS A ROLLATOR WALKER, CANE, WHEELCHAIR, RAMP, BEDSIDE COMMODE. PT VERBALIZED THEY LIVE IN A MOBILE HOME. FEELS SAFE TO GO BACK HOME, STILL DRIVE, ABLE TO ASSIST WITH TRANSPORTATION AND NEEDS NECESSARY. DISCUSSED MD RECOMMENDATIONS FOR HOME W/HOME HEALTH AND WILL NEED WALKER, VONDA TO ARRANGE, GIVEN IN [facility] AND DME COMPANIES, PT AGREEABLE, CONSENT SIGNED DENY FOR ANY IN [facility] AND [facility]. [facility] HOME W/HH AND DME ONCE APPROVED. CM TO CONTINUE TO FOLLOW UP. Addendum: 07/25/24 at 1306 by CHARLEY ELIZABETH LVN CM Amended: Links added.
--- NOTE | 2024-07-25 15:50 | NUR ---
ORTHO COORDINATOR: REINFORCED TEACHING. PATIENT UP TO CHAIR, REPORTS JUST FINISHING WITH PHYSICAL THERAPY. PATIENT RATES PAIN 7/10. PATIENT VOIDING, NO BOWEL MOVEMENT. 1550: REPORT TO PRIMARY NURSE REGARDING PAIN. PRIMARY NURSE ACKNOWLEDGED COMMUNICATION. 1615 RETURNED TO BEDSIDE. PATIENT IN BED, AT SIDE. PATIENT REPORTS RECEIVING PAIN MEDICATION AND HAS A PAIN MANAGEMENT PLAN WITH PRIMARY NURSE. REINFORCED NEED TO CONTINUE INCENTIVE SPIROMETRY AT HOME AND FOOT FLEXION/EXTENSION EXERCISES, RATIONALE PROVIDED. ENCOURAGED PATIENT TO CONTINUE PREMEDICATING PRIOR TO HOME PHYSICAL THERAPY OR DURING PERIODS OF HIGH ACTIVITY. PATIENT AND VERBALIZED UNDERSTANDING. NO ADDITIONAL QUESTIONS/CONCERNS AT THIS TIME.
[2024-07-25 16:00] VITALS: BP 102/54; PULSE 64; RESP 20; TEMP 98
[2024-07-25] MEDS ORDERED: ASPI-891 PO (16:23)
[2024-07-25] MEDS ORDERED: HYDR-4060 PO (16:23)
[2024-07-25] MEDS ORDERED: DOCU-116 PO (16:23)
[2024-07-25] MEDS ORDERED: CYCL-309 PO (16:23)
--- NOTE | 2024-07-25 16:29 | NUR ---
NOTIFIED DR IRIZARRY THAT HAS BEEN ARRANGED FOR PT BUT THE DME IS PENDING. WILL DISCHARGE WHEN DME IS APPROVED.
--- NOTE | 2024-07-25 16:54 | NUR ---
CM Note: [facility] approval; pending [facility] DME approval and delivery CM spoke to Kathy w/[facility] pt has approval, will see patient day after D/C. Pt currently still pending [facility] approval and delivery at home for standard walker. Per Niurka haynes to lend walker for safe DC today. Patient signed consent form for DME lending, instructed patient return borrowed walker w/security in emergency room once own walker delivered at home by [facility] DME, patient and verbalized understanding. Pt safe to DC home via private car. Primary nurse Riccardo updated. Dr Fererr updated. CM to continue to follow up.
[2024-07-25] MEDS: ketOROlac 15MG/ML VIAL (15MG/ML) IV PRN (16:57)
--- NOTE | 2024-07-25 17:46 | NUR ---
DISCHARGE PIV DC'D. REPORT CALLED TO [facility]. DISCHARGE INSTRUCTIONS REVIEWED WITH PT AND SPOUSE. ALL QUESTIONS ANSWERED AT THIS TIME. PT LEAVING VIA WHEELCHAIR WITH WALKER FROM [facility].
--- NOTE | 2024-07-26 15:51 | NUR ---
CATALINA ABRAHAM THAT WKR WILL BE DELIVERED ON SATURDAY 07/29
[2024-07-27] MEDS ORDERED: BisaCODYL 10 MG SUPP.RECT RC PRN (14:00)
== END 2024-07-25 17:45 | disposition home health service (06) ==
LOC: DAH 08:03 → SUH 08:03 → DAHIP 08:04 → SUH 08:04 → 4AH 15:27
PROVIDERS: ADMIT Student in an Organized Health Care Education/Training Program; ATTEND Student in an Organized Health Care Education/Training Program
DX: M17.11 Unilateral primary osteoarthritis, right knee (principal); M25.561 Pain in right knee; D62 Acute posthemorrhagic anemia; I10 Essential (primary) hypertension; E78.5 Hyperlipidemia, unspecified; E66.01 Morbid (severe) obesity due to excess calories; N40.0 Benign prostatic hyperplasia without lower urinary tract symptoms; Z98.890 Other specified postprocedural states; Z79.899 Other long term (current) drug therapy
CPT/HCPCS: 82040; 80048 ×2; 85025; 85610; 85730; 84134; 86140; 36415 ×2; 87641; 27447; 96365; 96375; 64447; 73560; 97161; 97116 ×3; 96376; 96366; 85027; 97530 ×2; G0378 ×24; A4223 ×2; A4663; J7120; J3010 ×2; J0690 ×4; J1171; J3490 ×7; J1100; J2003; J2250; J2704 ×2; J2405; J1885 ×5; J2710; J2795 ×2; C1713 ×2; C1776 ×2; A4649 ×2; A4930; A6255; A5120; A4215; A4213; A4222; A4221; A4216